=== PATIENT | male | born 1970 | race African-American/Black ===

== ENCOUNTER 2019-02-11 23:09 | Inpatient (IN) | payer MEDICAID ==
[~2019-02-11] VITALS: Ht 188 cm; Wt 114.4 kg
[~2019-02-11 23:09] MED LIST: AMLO5TAB4 PO; ASPI-858 PO; HUMULIN 70/30 SUBCUT; LISI-209 PO
[2019-02-11 23:14] VITALS: BP_SYST 160
[2019-02-11] MEDS ORDERED: PIPERACILLIN/TAZO 3.375 GM in NS 50 ML IV ONE (23:45)
[2019-02-12] MEDS ORDERED: MORPHINE 4 MG/ML INJ. SYRINGE IVP ONE ×3 (00:15→09:30)
[2019-02-12] MEDS ORDERED: ONDANSETRON HCL 4 MG/2 ML VIAL IVP ONE (00:15)
[2019-02-12] MEDS ORDERED: KETOROLAC TROMETHAMINE 30 MG VIAL IVP ONE (00:30)
[2019-02-12] MEDS ORDERED: PIPERACILLIN/TAZOBACTAM 3.375 GM/VIAL (ZOSYN) IV ONE ×2 (00:51→10:57)
[2019-02-12 00:58] LABS: BASOPHILS # (AUTO) 0.1 K/uL (0.0-0.2); BASOPHILS % (AUTO) 0.5 % (0.0-2.0); EOSINOPHILS % (AUTO) 0.3 % (0.0-4.0); HEMATOCRIT 44.1 % (36-54); HEMOGLOBIN 13.8 g/dL (14.0-18.0); MEAN CORPUSCULAR HEMOGLOBIN 26 pg (27-31); MEAN CORPUSCULAR HGB CONC 31 % (32-36); MEAN CORPUSCULAR VOLUME 84 fL (79.0-98.0); MONOCYTES # (AUTO) 0.8 K/uL (0.0-1.0); MONOCYTES % (AUTO) 4.7 % (1.7-9.3); NEUTROPHILS # (AUTO) 14.2 K/uL (1.8-7.7); NEUTROPHILS % (AUTO) 88.5 % (40.0-70.0); PLATELET COUNT (AUTO) 251 K/uL (130-430); RED BLOOD CELL COUNT(AUTO) 5.26 MIL/uL (4.2-6.2); RED CELL DISTRIBUTION WIDTH 15.7 % (9.0-15.0); WHITE BLOOD COUNT (AUTO) 16.1 K/uL (4.8-10.8)
[2019-02-12 01:02] LABS: CALCIUM 8.3 mg/dL (8.4-11.0); CREATININE 1.19 mg/dL (0.55-1.30); POTASSIUM 3.4 mmol/L (3.5-5.1)
[2019-02-12 01:05] LABS: BILIRUBIN,URINE 1+ (NEGATIVE); BLOOD, URINE 1+ (NEGATIVE); CLARITY/URINE SL HAZY (CLEAR); COLOR,URINE YELLOW (YELLOW); GLUCOSE,URINE NEGATIVE (NEGATIVE); KETONES,URINE TRACE (NEGATIVE); LEUKOCYTE ESTERASE ,URINE NEGATIVE (NEGATIVE); NITRITE, URINE NEGATIVE (NEGATIVE); PROTEIN URINE 3+ (NEGATIVE)
[2019-02-12 01:16] LABS: ALBUMIN 2.2 g/dL (3.4-4.8); TOTAL BILIRUBIN 1.7 mg/dL (0.0-1.0)
[2019-02-12 01:18] LABS: BACTERIA,URINE FEW /HPF (None Seen); WBC,URINE 0-3 /HPF (0-3)
[2019-02-12 01:20] LABS: URINE AMORPHOUS URATE 2+ /HPF (None Seen)
[2019-02-12 01:21] LABS: HYALINE CASTS, URINE 0-10 /LPF (None Seen)
[2019-02-12] MEDS ORDERED: IPRATROPIUM/ALBUTEROL SULFATE 3 ML AMPUL.NEB (DUONEB) INH ONE (05:15)
[2019-02-12] MEDS ORDERED: FUROSEMIDE 40 MG/4 ML VIAL IVP ONE (05:30)
[2019-02-12] MEDS ORDERED: ALBU2.5V7 INH (06:27)
[2019-02-12] MEDS ORDERED: FLUT12AE5 IH (06:27)
[2019-02-12] MEDS ORDERED: NACL 0.9% 1,000 ML IV ONE (07:30)
[2019-02-12] MEDS ORDERED: VANCOMYCIN HCL 1,000 MG in NS 250 ML IV ONE (07:30)
[2019-02-12] MEDS ORDERED: ASPIRIN 325 MG TABLET (ECOTRIN) PO ONE (07:30)
[2019-02-12] MEDS ORDERED: PIPERACILLIN/TAZO 3.375 GM in NS 50 ML IV ONE (07:30)
[2019-02-12] MEDS ORDERED: VANCOMYCIN HCL 1000 MG/VIAL IV ONE (08:17)
[2019-02-12] MEDS ORDERED: INSULIN ASPART 100 UNITS/ML, 10 ML VIAL (NovoLOG) SUBCUT PRN (11:30)
[2019-02-12] MEDS ORDERED: POTASSIUM CHLORIDE 20 MEQ/PKT PACKET PO ONE (12:00)
[2019-02-12 12:10] VITALS: BP_SYST 133
[2019-02-12] MEDS ORDERED: ACETAMINOPHEN 325 MG TABLET PO PRN (13:15)
[2019-02-12 13:28] VITALS: BP_SYST 133
[2019-02-12] MEDS: IPRATROPIUM/ALBUTEROL SULFATE 3 ML AMPUL.NEB (DUONEB) INH SCH ×2 (14:00→22:00)
[2019-02-12] MEDS ORDERED: MORPHINE 2 MG/ML INJ. SYRINGE IVP PRN (14:30)
[2019-02-12] MEDS: ONDANSETRON HCL 4 MG/2 ML VIAL IVP PRN (15:13)
[2019-02-12 16:25] VITALS: BP_SYST 142
[2019-02-12] MEDS: MORPHINE 4 MG/ML INJ. SYRINGE IVP PRN ×2 (17:14→20:59)
[2019-02-12] MEDS: INSULIN LISPRO SLIDING SCALE 100 UNITS/ML VIAL (humaLOG) SUBCUT PRN ×2 (17:16→20:48)
[2019-02-12] MEDS: CLINDAMYCIN 600 MG in D5W 50 ML IV SCH ×2 (18:39→23:09)
[2019-02-12 20:00] VITALS: BP_SYST 132
[2019-02-12] MEDS: LISINOPRIL 10 MG TABLET (PRINIVIL) PO SCH (20:42)
[2019-02-12] MEDS: VANCOMYCIN HCL 1,500 MG in NS 250 ML IV SCH (20:51)
[2019-02-12] MEDS ORDERED: CARVEDILOL 3.125 MG TABLET (COREG) PO SCH (21:00)
[2019-02-12] MEDS: ZOLPIDEM TARTRATE 5 MG TABLET PO PRN (23:06)
[2019-02-12 23:46] LABS: BARBITURATE, URINE NEGATIVE (NEG <=200); BENZODIAZEPINE, URINE POSITIVE (NEG <=150); METHAMPHETAMINES SCREEN,URINE POSITIVE (NEG <=500); OPIATE, URINE POSITIVE (NEG <=100); URINE AMPHETAMINE NEGATIVE (NEG <=500)
[2019-02-12 23:47] LABS: CANNABINOID, URINE NEGATIVE (NEG <=50); COCAINE, URINE NEGATIVE (NEG <=150); PHENCYCLIDINE SCREEN,URINE NEGATIVE (NEG <=25); UR TRICYCLIC ANTIDEPRESSANTS NEGATIVE (NEG <=300); URINE METHADONE NEGATIVE (NEG <=200); URINE OXYCODONE SCREEN NEGATIVE (NEG <=100); URINE PROPOXYPHENE SCREEN NEGATIVE (NEG <=300)
[2019-02-13 01:38] VITALS: BP_SYST 120
[2019-02-13] MEDS: HYDROmorphone 1 MG INJ. 1 MG/ML AMPUL IVP PRN ×5 (02:02→19:55)
[2019-02-13] MEDS: CLINDAMYCIN 600 MG in D5W 50 ML IV SCH ×4 (06:14→23:59)
[2019-02-13] MEDS ORDERED: CLINDAMYCIN 600 mg/50mL D5W 50 ML IV ONE (06:31)
[2019-02-13 06:37] LABS: BASOPHILS # (AUTO) 0.1 K/uL (0.0-0.2); BASOPHILS % (AUTO) 0.6 % (0.0-2.0); EOSINOPHILS # (AUTO) 0.1 K/uL (0.0-0.4); EOSINOPHILS % (AUTO) 0.5 % (0.0-4.0); HEMATOCRIT 44.7 % (36-54); LYMPHOCYTES # (AUTO) 1.6 K/uL (1.0-5.5); LYMPHOCYTES % (AUTO) 11.4 % (20.5-51.5); MEAN CORPUSCULAR HEMOGLOBIN 26 pg (27-31); MEAN CORPUSCULAR HGB CONC 31 % (32-36); MEAN CORPUSCULAR VOLUME 83 fL (79.0-98.0); MONOCYTES # (AUTO) 0.6 K/uL (0.0-1.0); MONOCYTES % (AUTO) 4.1 % (1.7-9.3); NEUTROPHILS # (AUTO) 11.5 K/uL (1.8-7.7); NEUTROPHILS % (AUTO) 83.4 % (40.0-70.0); PLATELET COUNT (AUTO) 256 K/uL (130-430); RED CELL DISTRIBUTION WIDTH 16.4 % (9.0-15.0); WHITE BLOOD COUNT (AUTO) 13.8 K/uL (4.8-10.8)
[2019-02-13 07:08] LABS: HEMOGLOBIN 13.9 g/dL (14.0-18.0)
[2019-02-13] MEDS: IPRATROPIUM/ALBUTEROL SULFATE 3 ML AMPUL.NEB (DUONEB) INH SCH ×3 (07:23→23:10)
[2019-02-13 07:33] LABS: ALBUMIN 1.9 g/dL (3.4-4.8); BILIRUBIN,DIRECT 1.5 mg/dL (0.0-0.3); CALCIUM 8.4 mg/dL (8.4-11.0); CREATININE 1.2 mg/dL (0.55-1.30); POTASSIUM 3.7 mmol/L (3.5-5.1); THYROID STIMULATING HORMONE 1.36 uIu/mL (0.34-4.82)
[2019-02-13 07:59] VITALS: BP_SYST 139
[2019-02-13] MEDS: VANCOMYCIN HCL 1,500 MG in NS 250 ML IV SCH ×2 (08:56→21:00)
[2019-02-13] MEDS ORDERED: FUROSEMIDE 40 MG/4 ML VIAL IVP SCH (09:00)
[2019-02-13] MEDS ORDERED: LISINOPRIL 5 MG TABLET PO SCH (09:00)
[2019-02-13] MEDS: FAMOTIDINE 20 MG TABLET PO SCH (10:08)
[2019-02-13] MEDS: ASPIRIN 81 MG TAB.CHEW PO SCH (10:08)
[2019-02-13] MEDS: ONDANSETRON HCL 4 MG/2 ML VIAL IVP PRN (10:10)
[2019-02-13] MEDS: LISINOPRIL 10 MG TABLET (PRINIVIL) PO SCH ×2 (10:10→20:23)
[2019-02-13] MEDS: SPIRONOLACTONE 25 MG TABLET (ALDACTONE) PO SCH ×2 (10:12→20:22)
[2019-02-13] MEDS: METOLAZONE 5 MG TABLET PO SCH (10:13)
[2019-02-13] MEDS: ENOXAPARIN SODIUM 40 MG/0.4 ML SYRINGE SUBCUT SCH (10:14)
[2019-02-13] MEDS: FUROSEMIDE 40 MG/4 ML VIAL IVP SCH ×2 (11:43→21:00)
[2019-02-13] MEDS: CARVEDILOL 3.125 MG TABLET (COREG) PO SCH ×2 (11:44→20:22)
[2019-02-13 12:37] VITALS: BP_SYST 130
[2019-02-13] MEDS ORDERED: BALSAM PERU/CASTOR OIL 60 GM OINT...G. TP ONE (16:00)
[2019-02-13 20:00] VITALS: BP_SYST 131
[2019-02-14 00:22] VITALS: BP_SYST 133
[2019-02-14] MEDS: HYDROmorphone 1 MG INJ. 1 MG/ML AMPUL IVP PRN ×6 (04:24→21:04)
[2019-02-14] MEDS: CLINDAMYCIN 600 MG in D5W 50 ML IV SCH ×4 (06:00→23:06)
[2019-02-14 06:41] LABS: BASOPHILS # (AUTO) 0.1 K/uL (0.0-0.2); BASOPHILS % (AUTO) 0.9 % (0.0-2.0); EOSINOPHILS % (AUTO) 0.3 % (0.0-4.0); HEMATOCRIT 47.6 % (36-54); LYMPHOCYTES # (AUTO) 1.4 K/uL (1.0-5.5); MEAN CORPUSCULAR HEMOGLOBIN 26 pg (27-31); MEAN CORPUSCULAR HGB CONC 32 % (32-36); MEAN CORPUSCULAR VOLUME 83 fL (79.0-98.0); MONOCYTES # (AUTO) 0.6 K/uL (0.0-1.0); MONOCYTES % (AUTO) 4.6 % (1.7-9.3); NEUTROPHILS # (AUTO) 10.8 K/uL (1.8-7.7); NEUTROPHILS % (AUTO) 83.2 % (40.0-70.0); PLATELET COUNT (AUTO) 275 K/uL (130-430); RED BLOOD CELL COUNT(AUTO) 5.77 MIL/uL (4.2-6.2); RED CELL DISTRIBUTION WIDTH 16.4 % (9.0-15.0)
[2019-02-14 06:57] LABS: CALCIUM 8.3 mg/dL (8.4-11.0); CREATININE 1.41 mg/dL (0.55-1.30); POTASSIUM 3.6 mmol/L (3.5-5.1)
[2019-02-14 07:11] LABS: ALBUMIN 1.6 g/dL (3.4-4.8); TOTAL BILIRUBIN 1.9 mg/dL (0.0-1.0)
[2019-02-14 08:00] VITALS: BP_SYST 136
[2019-02-14] MEDS: FUROSEMIDE 40 MG/4 ML VIAL IVP SCH ×2 (09:01→20:22)
[2019-02-14] MEDS: VANCOMYCIN HCL 1,500 MG in NS 250 ML IV SCH ×2 (09:06→20:21)
[2019-02-14 09:07] LABS: HEPATITIS A AB, IgM Negative (Negative); HEPATITIS B CORE AB, IgM Negative (Negative); HEPATITIS B SURFACE AG Negative (Negative)
[2019-02-14] MEDS: ENOXAPARIN SODIUM 40 MG/0.4 ML SYRINGE SUBCUT SCH (09:07)
[2019-02-14] MEDS: ASPIRIN 81 MG TAB.CHEW PO SCH (09:07)
[2019-02-14] MEDS: LISINOPRIL 10 MG TABLET (PRINIVIL) PO SCH ×2 (09:08→20:23)
[2019-02-14] MEDS: CARVEDILOL 3.125 MG TABLET (COREG) PO SCH ×2 (09:08→20:23)
[2019-02-14] MEDS: SPIRONOLACTONE 25 MG TABLET (ALDACTONE) PO SCH ×2 (09:09→20:22)
[2019-02-14] MEDS: METOLAZONE 5 MG TABLET PO SCH (09:09)
[2019-02-14] MEDS: FAMOTIDINE 20 MG TABLET PO SCH (09:13)
[2019-02-14] MEDS: IPRATROPIUM/ALBUTEROL SULFATE 3 ML AMPUL.NEB (DUONEB) INH SCH ×3 (12:16→23:02)
[2019-02-14 12:50] VITALS: BP_SYST 136
[2019-02-14 16:34] VITALS: BP_SYST 119
[2019-02-14] MEDS: BALSAM PERU/CASTOR OIL 60 GM OINT...G. TP SCH (17:27)
[2019-02-14] MEDS: INSULIN LISPRO SLIDING SCALE 100 UNITS/ML VIAL (humaLOG) SUBCUT PRN ×2 (17:30→20:26)
[2019-02-14 20:00] VITALS: BP_SYST 119
[2019-02-14] MEDS: ZOLPIDEM TARTRATE 5 MG TABLET PO PRN (22:02)
[2019-02-14 23:26] VITALS: BP_SYST 110
[2019-02-15 00:13] LABS: CHLAMYDIA TRACHOMATIS NAA Negative (Negative); NEISSERIA GONORRHOEAE NAA Negative (Negative)
[2019-02-15] MEDS: HYDROmorphone 1 MG INJ. 1 MG/ML AMPUL IVP PRN ×2 (02:07→05:56)
[2019-02-15] MEDS: CLINDAMYCIN 600 MG in D5W 50 ML IV SCH (05:56)
[2019-02-15] MEDS: INSULIN LISPRO SLIDING SCALE 100 UNITS/ML VIAL (humaLOG) SUBCUT PRN (06:04)
[2019-02-15] MEDS: IPRATROPIUM/ALBUTEROL SULFATE 3 ML AMPUL.NEB (DUONEB) INH SCH (07:30)
[2019-02-15 08:00] VITALS: BP_SYST 131
[2019-02-15 08:57] VITALS: BP_SYST 110
[2019-02-15] MEDS: VANCOMYCIN HCL 1,500 MG in NS 250 ML IV SCH (09:22)
[2019-02-15] MEDS: FAMOTIDINE 20 MG TABLET PO SCH (09:22)
[2019-02-15] MEDS: ASPIRIN 81 MG TAB.CHEW PO SCH (09:22)
[2019-02-15] MEDS: LISINOPRIL 10 MG TABLET (PRINIVIL) PO SCH (09:37)
[2019-02-15] MEDS: METOLAZONE 5 MG TABLET PO SCH (09:38)
[2019-02-15] MEDS: SPIRONOLACTONE 25 MG TABLET (ALDACTONE) PO SCH (09:38)
[2019-02-15] MEDS: FUROSEMIDE 40 MG/4 ML VIAL IVP SCH (09:39)
[2019-02-15] MEDS: CARVEDILOL 3.125 MG TABLET (COREG) PO SCH (09:39)
[2019-02-15] MEDS: BALSAM PERU/CASTOR OIL 60 GM OINT...G. TP SCH (09:40)
[2019-02-15] MEDS: ENOXAPARIN SODIUM 40 MG/0.4 ML SYRINGE SUBCUT SCH (09:41)
[2019-02-15 12:55] VITALS: BP_SYST 119
[2019-02-15] MEDS ORDERED: cefTRIAXone 1 GM in D5W 50 ML IV SCH (16:00)
== END 2019-02-15 12:10 | disposition left against medical advice (07) | DRG 720 ==
LOC: SED 23:09 → STU 02-12 11:22
PROVIDERS: ADMIT Internal Medicine; ATTEND Internal Medicine
DX: A41.9 Sepsis, unspecified organism (principal); E43 Unspecified severe protein-calorie malnutrition; I50.43 Acute on chronic combined systolic (congestive) and diastolic (congestive) heart failure; I42.0 Dilated cardiomyopathy; J45.901 Unspecified asthma with (acute) exacerbation; I47.1 Supraventricular tachycardia; I11.0 Hypertensive heart disease with heart failure; E11.9 Type 2 diabetes mellitus without complications; L02.92 Furuncle, unspecified; J44.9 Chronic obstructive pulmonary disease, unspecified; E87.6 Hypokalemia; F17.210 Nicotine dependence, cigarettes, uncomplicated; N50.89 Other specified disorders of the male genital organs; N45.1 Epididymitis; A54.01 Gonococcal cystitis and urethritis, unspecified; N34.2 Other urethritis; Z79.82 Long term (current) use of aspirin; Z86.14 Personal history of Methicillin resistant Staphylococcus aureus infection; Z79.899 Other long term (current) drug therapy; Z68.32 Body mass index [BMI] 32.0-32.9, adult
CPT/HCPCS: 36415; 71045; 76700-TC; 76870-TC; 80048; 80053; 80074; 80076; 80202-TC; 80307; 81000-TC; 82150-TC; 82962; 83605; 83690-TC; 83735-TC; 83880; 84443-TC; 85025; 87040-TC; 87070-TC; 87081; 87186-TC; 87491; 87591; 93005; 93306; 94640; 94760; G0378; J0696; J1170; J1650; J1885; J1940; J2270; J2405; J2543; J3370; J3490; J7030; J7050; J7060; J7620